=== PATIENT | male | born 1995 | race Caucasian/White ===

== ENCOUNTER 2021-02-26 10:32 | Emergency (ER) | payer BC ==
[~2021-02-26] VITALS: Ht 165.1 cm; Wt 90.7 kg
[2021-02-26 12:27] LABS: URINE BILIRUBIN NEGATIVE (Negative); URINE BLOOD NEGATIVE (Negative); URINE CLARITY CLEAR; URINE COLOR YELLOW; URINE GLUCOSE-RANDOM* NEGATIVE (Negative); URINE KETONES NEGATIVE (Negative); URINE LEUKOCYTES-REFLEX NEGATIVE (Negative); URINE NITRITE-REFLEX NEGATIVE (Negative); URINE PROTEIN (DIPSTICK) NEGATIVE (Negative); URINE SPECIFIC GRAVITY 1.025 (1.005-1.035)
[2021-02-26] MEDS ORDERED: DOXYCYCLINE 10100 MG PO (14:04)
[2021-02-26 15:46] VITALS: BP 122/74
== END 2021-02-26 22:55 | disposition home or self-care (01) ==
LOC: ER 10:32
PROVIDERS: Emergency Medicine; Nurse Practitioner
DX: A64 Unspecified sexually transmitted disease (principal); F12.90 Cannabis use, unspecified, uncomplicated